=== PATIENT | male | born 1960 | race Caucasian/White ===

== ENCOUNTER 2022-06-16 04:29 | Emergency (ER) | payer OTHER, SELFPAY ==
[2022-06-16 04:35] VITALS: BP 251/121; PULSE 76; RESP 18; TEMP 36.6; O2SAT 100
--- NOTE | 2022-06-16 04:41 | ED.ABDPAIN ---
HPI - Abdominal Pain General Chief Complaint: Abdominal Pain Stated Complaint: abd. pain Time Seen by Provider: 06/16/22 04:36 History of Present Illness HPI narrative: Patient here for lower abdominal pain in the past 2 hours. Slow onset. No nausea vomiting diarrhea. Has had decreased urination. Patient's states had similar episode a year ago with constipation. Is not on any medications. Denies any back pain or chest pain. No syncope. Denies any recent illness. No cough cold congestion fever chills. Denies any abdominal surgical history. Patient states usually has a bowel movement every day. Usually in the morning. However none today. Blood pressure noted. Patient states he was told 20 years ago he needed to be on blood pressure medication. He is never been on blood pressure medication. This is chronic. The last time he saw a doctor was a year ago. He was told this was beyond blood pressure medication but yet he still refused to take it. Denies any chest pain. No headache. No numbness tingling or weakness. Related Data Allergies Allergy/AdvReac Type Severity Reaction Status Date / Time No Known Drug Allergies Allergy Verified 06/16/22 05:06 Review of Systems Review of Systems Narrative: GENERAL: Denies chills, fatigue, malaise, fever, sweats. HEENT: Denies sinus pain, ear pain, sore throat RESPIRATORY: Denies dyspnea, cough CARDIOVASCULAR: Denies chest pain, palpitations GASTROINTESTINAL: Denies nausea, vomiting, positive constipation and abdominal pain : Denies dysuria, frequency, hematuria MUSCULOSKELETAL: denies muscle or bony pain SKIN: Denies rash, skin lesions NEUROLOGIC: Denies weakness, numbness ROS Unobtainable: All systems reviewed & are unremarkable except as noted in HPI and below Patient History Social History Smoking Status: Never smoker Exam Narrative Exam Narrative: GENERAL: in no distress, not toxic not dyspneic HEAD: Normocephalic. EYES: Pupils equal round No scleral icterus. ENT: Mucous membranes moist. NECK: Trachea midline. CARDIOVASCULAR: Regular rate and rhythm without murmurs RESPIRATORY: Clear to auscultation. Breath sounds equal bilaterally. No wheezes, rales, or rhonchi. GASTROINTESTINAL: Abdomen soft, non-tender, no peritoneal signs, no tenderness in the upper have a abdomen or lower half of the abdomen. Bowel sounds are present EXTREMITIES: No gross deformities. BACK: No flank tenderness. NEURO: AOx4. SKIN: Warm and dry PSYCH: Not anxious, is cooperative Initial Vital Signs Initial Vital Signs: Vital Signs Temperature 98 F 06/16/22 04:35 Pulse Rate 76 06/16/22 04:35 Respiratory Rate 18 06/16/22 04:35 Blood Pressure 251/121 H 06/16/22 04:35 Pulse Oximetry 100 06/16/22 04:35 Oxygen Delivery Method 06/16/22 04:35 Course Course Course Narrative: No new issues during course of stay Orders Ordered: ED Orders 06/16/22 04:40 Complete Blood Count AUTO DIFF Stat Comprehensive Metabolic Panel Stat Lipase Stat 06/16/22 04:44 EKG-12 Lead Stat Discontinued Medications Sodium Chloride (Normal Saline 0.9%) 1,000 mls @ 1,000 mls/hr IV BOLUS ONE Stop: 06/16/22 05:39 Last Admin: 06/16/22 05:00 Dose: Not Given Lisinopril (Lisinopril 10 Mg Tablet) 10 mg PO NOW ONE Stop: 06/16/22 04:48 Last Admin: 06/16/22 05:10 Dose: Not Given Reevaluation(s) Reevaluation #1: Patient did not want to wait for me to talk to him as he was leaving he did not want any further treatment or testing. Time: 05:25 Vital Signs Vital signs: Vital Signs - 8 hr 06/16/22 04:35 06/16/22 04:42 06/16/22 04:46 Temperature 98 F Pulse Rate 76 74 75 Respiratory Rate 18 Blood Pressure 251/121 H Pulse Oximetry 100 100 100 Oxygen Delivery Method Room Air 06/16/22 04:46 06/16/22 05:00 Temperature Pulse Rate 72 Respiratory Rate Blood Pressure 235/109 H Pulse Oximetry 98 Oxygen Delivery Method MDM - Abdominal Pain Differential Diagnosis Differential diagnosis: Likely abdominal pain, acute appendicitis, calculus of kidney, constipation, diverticulitis, pancreatitis, small bowel obstruction and other (Abdominal aneurysm/dissection) Lab Data Result diagrams: 06/16/22 04:45 06/16/22 04:45 Labs: Lab Results 06/16/22 06/16/22 Range/Units 04:45 04:45 WBC 6.0 (4.5-11.0) X10^3/uL RBC 4.43 L (4.5-5.9) X10^6/uL Hgb 13.9 (13.5-17.5) g/dL Hct 40.5 L (41-53) % MCV 91.5 (80-100) fL MCH 31.4 (26-34) PG MCHC 34.3 (30-36) % RDW 13.2 (11.6-14.8) % Plt Count 242 (150-400) X10^3/uL Neut % (Auto) 75.8 H (50-75) % Lymph % (Auto) 14.0 L (25-40) % Garrett % (Auto) 4.8 (3-14) % Eos % (Auto) 1.7 L (2-4) % Baso % (Auto) 3.7 H (0-2) % Neut # (Auto) 4500 (7613-9808) /uL Lymph # (Auto) 800 L (8366-7058) /uL Garrett # (Auto) 300 (0-900) /uL Eos # (Auto) 100 (0-450) /uL Baso # (Auto) 200 H (0-100) /uL Sodium 138 (137-145) mmol/L Potassium 4.2 (3.4-5.1) mmol/L Chloride 101 (98-107) mmol/L Carbon Dioxide 27 (22-32) mmol/L BUN 18 (9-20) mg/dL Creatinine 0.64 L (0.66-1.25) mg/dL Estimated GFR > 60 (>60) mL/min BUN/Creatinine Ratio 28.1 H (6-22) Glucose 345 H (80-110) mg/dL Calcium 9.2 (8.4-10.2) mg/dL Total Bilirubin 0.4 (0.2-1.3) mg/dL AST 21 (17-59) IU/L ALT 17 (<50) IU/L Alkaline Phosphatase 217 H (38-126) U/L Total Protein 8.4 H (6.3-8.2) g/dL Albumin 4.5 (3.5-5.0) g/dL Globulin 3.9 (1.7-4.1) g/dL Albumin/Globulin Ratio 1.2 (1.0-2.8) Lipase 165 (23-300) U/L ECG Data Interpretation: Normal sinus rhythm rate [address] elevation or depression MDM Narrative Medical decision making narrative: Patient would not wait for me to talk to him as he was leaving, he did not want any treatment after being triaged and examined in medicines ordered and tests ordered. Disposition is elopement. We do not have that on our software to choose elopement. Disposition is labeled as left against medical advice Discharge Plan Departure Patient Disposition: Left Against Medical Advice Clinical Impression: Eloped from emergency department Stand Alone Forms: Against Medical Advice
[2022-06-16 04:42] VITALS: PULSE 74; O2SAT 100
--- NOTE | 2022-06-16 04:45 | PC.NURSE ---
MD at bedside - BP elevated - pt states that he hasn't had BP treatment in 20 years - states that the last time he saw a doctor was a year ago and he was not started on any medications
[2022-06-16 04:46] VITALS: BP 235/109; PULSE 75; O2SAT 100
[2022-06-16 05:00] VITALS: PULSE 72; O2SAT 98
--- NOTE | 2022-06-16 05:00 | PC.NURSE ---
Calls on the callbell - asks for something to drink to help him have a BM - awaiting BP medication
[2022-06-16 05:06] LABS: Add Manual Diff / Slide Review NO; Basophils Absolute Auto 200 /uL (0-100); Basophils Percent Auto 3.7 % (0-2); Eosinophils Absolute Auto 100 /uL (0-450); Eosinophils Percent Auto 1.7 % (2-4); Hematocrit 40.5 % (41-53); Hemoglobin 13.9 g/dL (13.5-17.5); Lymphocytes Absolute Auto 800 /uL (1100-4500); Mean Corpuscular HGB Conc 34.3 % (30-36); Mean Corpuscular Hemoglobin 31.4 PG (26-34); Mean Corpuscular Volume 91.5 fL (80-100); Monocytes Absolute Auto 300 /uL (0-900); Monocytes Percent Auto 4.8 % (3-14); Neutrophils Absolute Auto 4500 /uL (1500-7000); Neutrophils Percent Auto 75.8 % (50-75); Platelet Count 242 X10^3/uL (150-400); Red Blood Cell Count 4.43 X10^6/uL (4.5-5.9); Red Cell Distribution Width 13.2 % (11.6-14.8)
--- NOTE | 2022-06-16 05:10 | PC.NURSE ---
Pt noted to be leaving the ER - dressed in his clothes - states that he does not want to stay - impatient stating that he wants something to drink to have a BM and he hasn't received it so he is going to go to work - states that he has to work at 0700 - attempts made to have the patient stay due to his untreated elevated BP - refuses to take the medication (lisinopril) - explained that it is better for him to stay for treatment but the patient states it's ok - risks attempted to be discussed by James, RN, Vijaya, storage battery charger, and this RN - attempts to walk to parking lot with IV still in place in the [facility] - explained that if the patient leaves he needs to have it removed - pulls up his sleeve to show the RN's that it is still in then pulls down the sleeve and attempts to walk away - explained that it needs to be removed at which point the patient states it's ok - told that the police will be called if he leaves with the IV - IV DC'd by this RN and yecenia taped to the site - the patient continues to refuse to stay or take the BP medication - walks away out the ER entrance - MD and security aware of situation
[2022-06-16 05:15] LABS: Alanine Aminotransferase 17 IU/L (<50); Albumin 4.5 g/dL (3.5-5.0); Albumin Globulin Ratio 1.2 (1.0-2.8); Alkaline Phosphatase 217 U/L (38-126); Aspartate Aminotransferase 21 IU/L (17-59); BUN Creatinine Ratio 28.1 (6-22); Bilirubin Total 0.4 mg/dL (0.2-1.3); Blood Urea Nitrogen 18 mg/dL (9-20); Calcium 9.2 mg/dL (8.4-10.2); Carbon Dioxide 27 mmol/L (22-32); Chloride 101 mmol/L (98-107); Estimated Glomerular Filt Rate > 60 mL/min (>60); Globulin 3.9 g/dL (1.7-4.1); Glucose 345 mg/dL (80-110); HEMOLYSIS < 15 (0-50); Lipase 165 U/L (23-300); Potassium 4.2 mmol/L (3.4-5.1); Sodium 138 mmol/L (137-145); Total Protein 8.4 g/dL (6.3-8.2)
== END 2022-06-16 05:15 | disposition left against medical advice (07) ==
PROVIDERS: Emergency Provider Emergency Medicine
DX: R10.30 Lower abdominal pain, unspecified (principal)
CPT/HCPCS: 36415; 80053; 83690; 85025; 93005; 99283